=== PATIENT | male | born 1970 ===

== ENCOUNTER 2022-11-11 09:15 | Inpatient (IN) | payer OTHER ==
[~2022-11-11] VITALS: Ht 175.3 cm; Wt 78.5 kg
[2022-11-15] MEDS ORDERED: LEVSIN/SL0.125 MG SL (10:47)
== END 2022-11-15 12:27 | disposition home or self-care (01) | DRG 331 ==
LOC: O/R 11-14 06:26 → SURH 11-14 09:15
PROVIDERS: ADMIT Surgery; ATTEND Surgery
PROC: 0DTH4ZZ Resection of Cecum, Percutaneous Endoscopic Approach (ICD-10-PCS; principal; 2022-11-14 12:45)
DX: D12.0 Benign neoplasm of cecum (principal); Z20.822 Contact with and (suspected) exposure to COVID-19